=== PATIENT | female | born 1965 | race Caucasian/White ===

== ENCOUNTER 2019-08-09 13:50 | Outpatient (CLI) | payer MEDICARE, SELFPAY ==
[2019-08-09 15:22] LABS: Anion Gap 18.1 (5-19); Blood Urea Nitrogen 64 mg/dL (6-20); Calcium 9.8 mg/dL (8.5-10.5); Carbon Dioxide 30 mmol/L (22-29); Chloride 95 mmol/L (98-107); Glucose 430 mg/dL (65-115); Potassium 4.1 mmol/L (3.5-5.1); Sodium 139 mmol/L (136-145)
[2019-08-09 15:45] LABS: Creatinine Urine, Random 54 mg/dL (28-217); Microalbumin Random Urine 14 ug/dL (0-20)
[2019-08-09 15:47] LABS: Microalbum Creatinine Ratio Ur 259 mg/dL (0-20)
== END 2019-08-09 13:51 | disposition home or self-care (01) ==
LOC: LAB 14:22
PROVIDERS: Family Provider Family Medicine; PCP Family Medicine; Visit Provider Internal Medicine Nephrology
DX: N18.3 Chronic kidney disease, stage 3 (moderate) (principal)
CPT/HCPCS: 36415; 80069; 82044

== ENCOUNTER → 2019-08-17 12:14 | Outpatient (BNVA) | payer MEDICARE, SELFPAY | PROVIDERS: Family Provider Family Medicine; PCP Nurse Practitioner; Referring Provider Nurse Practitioner; Visit Provider Nurse Practitioner | DX: N18.4 Chronic kidney disease, stage 4 (severe) (principal) | CPT/HCPCS: 80069 ==

== ENCOUNTER 2019-08-22 19:02 | Emergency (ER) | payer MEDICARE, SELFPAY ==
[2019-08-22 19:02] VITALS: BP 132/77; PULSE 82; RESP 18; TEMP 36.3; O2SAT 96; BMI 43.7
--- NOTE | 2019-08-22 19:11 | XRR_ITS ---
PROCEDURE INFORMATION: Exam: XR Left Elbow Exam date and time: 08/22/2019 7:27 PM Age: 53 years old Clinical indication: Pain and injury or trauma; Fall; Initial encounter; Blunt trauma (contusions or hematomas; Elbow; Left; Injury date: 08/22/19; Additional info: Fall and left elbow pain TECHNIQUE: Imaging protocol: XR Left elbow. Views: 1 or 2 views. COMPARISON: No relevant prior studies available. FINDINGS: Bones/joints: There is a comminuted fracture of the distal humerus. There are transverse and longitudinal components. The medial humeral condylar fragment is displaced medially relative to the remainder of the humerus and the elbow joint itself. The distal humeral fracture fragment is displaced anterior relative to the proximal humerus. Soft tissues: There is superficial soft tissue swelling. XR/XR elbow LT 2V [id number] IMPRESSION: Comminuted, displaced distal humeral fracture.
[2019-08-22 19:25] VITALS: BP 132/77; PULSE 81; RESP 16; O2SAT 98
--- NOTE | 2019-08-22 19:29 | W.ED.EXTPRO ---
HPI - Extremity Problem General: Chief complaint: Extremity Injury, Upper Stated complaint: fall Time Seen by Provider: 08/22/19 19:29 History of Present Illness: HPI Narrative: Patient is a 53-year-old female comes to the ED after a fall complaining of left elbow pain. Patient is on a blood thinner and has a medical history of diabetes and COPD. She is on 3 L of oxygen at home. Patient states she was sitting in her chair at home and then she got up to walk and tripped over an object on the floor she then fell landing on her left arm. She has some minor superficial abrasion on her left knee. She says her left elbow was in extreme pain afterwards. The ambulance was called and brought her to the ED. They put her in a splint and gave her fentanyl in the ambulance. She denies any head trauma or loss of consciousness. No other bone or muscle pains after fall. She denies any numbness or tingling to her extremities. She has sensation to her hand and is able to move fingers and wrist but it does cause some pain. Associated symptoms: Deny chest pain, fever(s) or rash Review of Systems Const: Denies: fever, chills or fatigue Eyes: Denies: change in vision or eye discomfort ENMT: Denies: throat pain, painful swallowing, nasal discharge or nasal congestion Card: Denies: chest pain, palpitations, edema, swelling of feet/ankles, shortness of breath on exertion or shortness of breath when lying down Resp: Denies: shortness of breath, productive cough or non-productive cough GI: Denies: abdominal pain, nausea, vomiting, diarrhea, constipation or blood in stool : Denies: flank pain, painful urination or blood in urine Musc: Reports: extremity pain (Left elbow) and extremity swelling (Left elbow); Denies: neck pain or back pain Skin/Breast: Denies: rash or new lesion Neuro: Denies: headache, numbness in extremities or weakness in extremities [facility] ED PFSH: Medical History COPD (chronic obstructive pulmonary disease) Diastolic CHF Hyperlipidemia Hypertension Pulmonary emboli Surgical History History of endometrial ablation Hx of section Hx of vein stripping Family History Other Anesthesia complication Cancer Clotting disorder Dementia Diabetes Hypertension Social History Smoking and tobacco status: former smoker Alcohol intake: never Adopted: No Caregiver/support person: Yes Lives independently: Yes Household members: family and children Housing: House Marital status: Single Number of children: 2 Number of grandchildren: 0 Highest education level completed: Some College, No Degree service: No Current occupational status: disabled History of recent travel: No Agree to transfusion: Yes (08/05/2019) Physical Exam Const: COMMON NORMALS: oriented x3 HENMT: COMMON NORMALS: normocephalic HEAD & SCALP: normocephalic MOUTH: oral and palatal mucosa normal THROAT: posterior oropharynx normal and uvula midline Neck/C-Spine: COMMON NORMALS: supple GENERAL: Yes normal visual inspection Resp: COMMON NORMALS: normal respiratory effort, no retractions, no use of accessory muscles and clear to auscultation bilaterally AUSCULTATION: clear to auscultation bilaterally Cardio: COMMON NORMALS: regular rate, regular rhythm, S1 normal heart sound, S2 normal heart sound, no gallops, no clicks, no murmurs and peripheral pulses 2+ throughout RATE: regular rate RHYTHM: regular rhythm HEART SOUNDS: S1 normal and S2 normal PERIPHERAL PULSES: pulses 2+ throughout GI: COMMON NORMALS: normal to inspection, nondistended, normoactive bowel sounds, soft to palpation, non-tender and no masses PALPATION: Yes soft : COMMON NORMALS: Yes no CVA tenderness BLADDER/KIDNEY EXAM: Yes no CVA tenderness Back/Pelvis: COMMON NORMALS: no CVA tenderness Extremity: GENERAL: Yes normal exam except as noted LEFT UPPER EXTREMITY: Yes elbow joint Left elbow: Yes inspection (swelling), Yes palpation (tender on lateral and medial side of elbow), Yes ROM (patient had splint on that was placed by ambulance.) and Yes neurovascular exam (intact-pulse 2+) Neuro: COMMON NORMALS: oriented x3 and moves all extremities Skin: TRAUMA: abrasion (superficial abrasion on left knee) Course ED course: I contacted [facility] in [place] and I talked to him and upper extremity orthopedic surgeon (Dr. Rm) about patient. Dr. Rm suggested that we transfer the patient tonight and direct admit them to [facility]. Vital Signs: Vital signs: Vital Signs Temperature 98.7 F 08/22/19 22:49 Pulse Rate 81 08/22/19 22:49 Respiratory Rate 16 08/22/19 22:49 Blood Pressure 145/74 08/22/19 22:49 Pulse Oximetry 97 08/22/19 22:49 MDM - Extremity (Nontraumatic) Imaging Data^: Xray Ortho: Attestation: I personally reviewed and interpreted this imaging study as follows: My impression: closed Fracture of distal humeral head. Medial epicondyles has been sheared and is displaced. Pending final radiology report. Discharge Plan Discharge Patient Disposition: Xfer Other Clinical Impression: Fracture of distal end of humerus Qualifiers: Encounter type: initial encounter Fracture type: closed Fracture morphology: other fracture Fracture alignment: displaced Laterality: left Qualified Code(s): S42.492A - Other displaced fracture of lower end of left humerus, initial encounter for closed fracture Condition: Stable Referrals: Suma Shaw FNP [Primary Care Provider] - Pilar Mcleod DO [Family Provider] - Discharge Date/Time: 08/22/19 22:45 Coding Level of Care Code ED [facility] House Worker for Chg Fwd Exam Comprehensive
[2019-08-22 20:00] VITALS: RESP 16; O2SAT 98
[2019-08-22] MEDS: ondansetron 2 mg/ML SDV 2 mL 4 MG IVP (20:00)
[2019-08-22] MEDS: morphine 4 mg/mL SDV 1 mL IVP (20:00)
--- NOTE | 2019-08-22 22:40 | PC.NURSE ---
Posterior palm up splint placed on left arm per orders.
[2019-08-22 22:49] VITALS: BP 145/74; PULSE 81; RESP 16; TEMP 37.1; O2SAT 97
== END 2019-08-22 22:45 | disposition other institution (70) ==
PROVIDERS: Emergency Provider Physician Assistant; Family Provider Family Medicine; PCP Nurse Practitioner
DX: S42.462A Displaced fracture of medial condyle of left humerus, initial encounter for closed fracture (principal); I11.0 Hypertensive heart disease with heart failure; I50.30 Unspecified diastolic (congestive) heart failure; J44.9 Chronic obstructive pulmonary disease, unspecified; E78.5 Hyperlipidemia, unspecified; E11.9 Type 2 diabetes mellitus without complications; Z87.891 Personal history of nicotine dependence; Z99.81 Dependence on supplemental oxygen; W01.0XXA Fall on same level from slipping, tripping and stumbling without subsequent striking against object, initial encounter; Y92.009 Unspecified place in unspecified non-institutional (private) residence as the place of occurrence of the external cause
CPT/HCPCS: 73070; 96374; 96375; 99282; 99285; J2270; J2405

== ENCOUNTER 2019-09-09 12:22 | Outpatient (CLI) | payer MEDICARE, SELFPAY ==
[2019-09-09 13:08] LABS: Albumin Level 4.3 g/dL (3.5-5.2); Anion Gap 16.8 (5-19); Calcium 10.3 mg/dL (8.5-10.5); Carbon Dioxide 34 mmol/L (22-29); Chloride 90 mmol/L (98-107); Glomerular Filtration Rate 24.6 mL/min (90-130); Glucose 233 mg/dL (65-115); Phosphorus 4.3 mg/dL (2.5-4.5); Potassium 3.8 mmol/L (3.5-5.1); Sodium 137 mmol/L (136-145)
[2019-09-09 14:25] LABS: Blood Urea Nitrogen 85 mg/dL (6-20)
== END 2019-09-09 12:23 | disposition home or self-care (01) ==
LOC: LAB 12:35
PROVIDERS: Family Provider Family Medicine; PCP Nurse Practitioner; Visit Provider Internal Medicine Nephrology
DX: N18.4 Chronic kidney disease, stage 4 (severe) (principal); E11.9 Type 2 diabetes mellitus without complications; J44.9 Chronic obstructive pulmonary disease, unspecified
CPT/HCPCS: 36415; 80069

== ENCOUNTER → 2020-05-08 12:03 | Outpatient (BNVA) | payer MEDICARE, SELFPAY | PROVIDERS: PCP Nurse Practitioner; Visit Provider Family Medicine Adult Medicine | DX: E11.65 Type 2 diabetes mellitus with hyperglycemia (principal); N18.4 Chronic kidney disease, stage 4 (severe); E78.01 Familial hypercholesterolemia; I10 Essential (primary) hypertension; I27.82 Chronic pulmonary embolism; I27.81 Cor pulmonale (chronic); I50.32 Chronic diastolic (congestive) heart failure; E11.40 Type 2 diabetes mellitus with diabetic neuropathy, unspecified; E66.2 Morbid (severe) obesity with alveolar hypoventilation | CPT/HCPCS: 80053; 80061; 83036; 84443; 85025 ==

== ENCOUNTER → 2020-05-23 13:03 | Outpatient (BNVA) | payer MEDICARE, SELFPAY | PROVIDERS: PCP Nurse Practitioner; Referring Provider Family Medicine Adult Medicine; Visit Provider Internal Medicine | DX: E11.22 Type 2 diabetes mellitus with diabetic chronic kidney disease (principal); N18.4 Chronic kidney disease, stage 4 (severe); E11.42 Type 2 diabetes mellitus with diabetic polyneuropathy; E11.65 Type 2 diabetes mellitus with hyperglycemia; E78.01 Familial hypercholesterolemia; I10 Essential (primary) hypertension; W54.8XXA Other contact with dog, initial encounter | CPT/HCPCS: 73030; 73080; 73110; 99204 ==

== ENCOUNTER → 2020-08-22 15:25 | Outpatient (BNVA) | payer MEDICARE, SELFPAY | PROVIDERS: PCP Nurse Practitioner; Visit Provider Internal Medicine | DX: E11.22 Type 2 diabetes mellitus with diabetic chronic kidney disease (principal); N18.4 Chronic kidney disease, stage 4 (severe); E11.42 Type 2 diabetes mellitus with diabetic polyneuropathy; E11.65 Type 2 diabetes mellitus with hyperglycemia | CPT/HCPCS: 99215 ==

== ENCOUNTER → 2021-02-12 11:03 | Outpatient (BNVA) | payer MEDICARE, SELFPAY | PROVIDERS: PCP Family Medicine Adult Medicine; Visit Provider Family Medicine Adult Medicine | DX: E11.65 Type 2 diabetes mellitus with hyperglycemia (principal); I10 Essential (primary) hypertension; E78.01 Familial hypercholesterolemia; N18.4 Chronic kidney disease, stage 4 (severe); I27.82 Chronic pulmonary embolism; I27.81 Cor pulmonale (chronic); I50.32 Chronic diastolic (congestive) heart failure; Z13.6 Encounter for screening for cardiovascular disorders | CPT/HCPCS: 80053; 80061; 83036; 85025 ==

== ENCOUNTER → 2021-05-01 14:14 | Outpatient (BNVA) | payer MEDICARE, SELFPAY | PROVIDERS: PCP Family Medicine Adult Medicine; Visit Provider Internal Medicine | DX: E11.65 Type 2 diabetes mellitus with hyperglycemia (principal); E11.22 Type 2 diabetes mellitus with diabetic chronic kidney disease; N18.4 Chronic kidney disease, stage 4 (severe); E66.01 Morbid (severe) obesity due to excess calories; Z68.42 Body mass index [BMI] 45.0-49.9, adult; Z79.4 Long term (current) use of insulin; Z87.891 Personal history of nicotine dependence | CPT/HCPCS: 99214 ==

== ENCOUNTER 2021-05-15 08:40 | Outpatient (CLI) | payer MEDICARE, SELFPAY ==
[2021-05-15 10:59] LABS: Alanine Aminotransferase 15 U/L (0-33); Albumin Level 3.7 g/dL (3.5-5.2); Alkaline Phosphatase 111 IU/L (35-105); Aspartate Amino Transferase 12 U/L (0-32); Blood Urea Nitrogen 48 mg/dL (6-20); Calcium 8.9 mg/dL (8.5-10.5); Carbon Dioxide 21 mmol/L (22-29); Chloride 103 mmol/L (98-107); Chol HDL Ratio 4.97 mg/dL (0.0-4.40); Cholesterol 154 mg/dL (0-200); Cortisol Random 10.83 ug/dL (2.47-19.5); Globulin 3.8 g/dL (1.3-4.6); Glucose 119 mg/dL (65-115); HDL Cholesterol 31 mg/dL (60-100); LDL Cholesterol Calculated 95 mg/dL (50-129); LDL HDL Ratio 3.06 RATIO (0.00-3.22); Osmolality Calculated 304 mOsm/kg (285-295); Sodium 140 mmol/L (136-145); Total Bilirubin 0.2 mg/dL (0.15-1.2); Total Protein 7.5 g/dL (6.6-8.7); Triglycerides 140 mg/dL (0-150)
[2021-05-15 11:24] LABS: Free T4 Free Thyroxine 0.82 ng/dL (0.82-1.77); Thyroid Stimulating Hormone 3.04 uIU/mL (0.27-4.20)
[2021-05-15 11:27] LABS: Estmated Average Glucose 148; Hemoglobin A1C 6.8 % (4.0-6.0)
== END 2021-05-15 08:41 | disposition home or self-care (01) ==
LOC: LAB 08:51
PROVIDERS: Internal Medicine; PCP Family Medicine Adult Medicine; Visit Provider Family Medicine Adult Medicine
DX: E11.65 Type 2 diabetes mellitus with hyperglycemia (principal); E66.01 Morbid (severe) obesity due to excess calories; N18.4 Chronic kidney disease, stage 4 (severe); Z68.42 Body mass index [BMI] 45.0-49.9, adult
CPT/HCPCS: 80053; 80061; 82533; 83036; 84439; 84443

== ENCOUNTER 2021-05-16 09:29 | Outpatient (CLI) | payer MEDICARE, SELFPAY ==
[2021-05-16 09:55] LABS: Total Volume Urine 2900 ml
[2021-05-16 10:03] LABS: Urine Creatinine 43 mg/dL (28-217)
[2021-05-22 15:37] LABS: Free Cortisol Urine 9.8 mcg/24 h (4.0-50.0); Total Urine 2900 mL; Urine Creatinine 1.24 g/24 h (0.50-2.15)
== END 2021-05-16 09:30 | disposition home or self-care (01) ==
PROVIDERS: PCP Family Medicine Adult Medicine; Visit Provider Internal Medicine
DX: E11.65 Type 2 diabetes mellitus with hyperglycemia (principal); E66.01 Morbid (severe) obesity due to excess calories; N18.4 Chronic kidney disease, stage 4 (severe); Z68.42 Body mass index [BMI] 45.0-49.9, adult
CPT/HCPCS: 82530; 82570

== ENCOUNTER 2021-07-09 10:31 | Outpatient (CLI) | payer MEDICARE, SELFPAY ==
[2021-07-09 11:27] LABS: Basophils % 0.4 %; Eosinophils # 0.1 10^3/uL (0.0-0.8); Eosinophils % 1.4 %; Hematocrit 34.3 % (37.0-47.0); Lymphocytes # 0.8 10^3/uL (0.8-4.8); Lymphocytes % 9.3 %; Mean Corpuscular HGB Conc 29.2 g/dL (30.0-36.0); Mean Corpuscular Hemoglobin 27.4 pg (28.0-34.0); Mean Platelet Volume 9.7 fL (7.4-10.4); Monocytes # 0.4 10^3/uL (0.2-0.9); Monocytes % 4.4 %; Neutrophils # 7.53 10^3/uL (1.8-7.7); Neutrophils % 83.7 %; Nucleated Red Blood Cells % 0 %; Platelet Count 216 10^3/cmm (130-400); Red Blood Count 3.65 10^6/uL (4.1-5.3); Red Cell Distribution Width 14.7 % (12.1-15.1)
[2021-07-09 11:41] LABS: Add Urine Microscopic? YES; Bilirubin Urine Neg (Negative); Blood Urine Trace (Negative); Glucose Urine UA Norm (Normal); Ketones Urine Negative (Negative); Leukocyte Esterase Urine Trace (Negative); Nitrate Urine Positive (Negative); Protein Urine 2+ (Negative); Urine Appearance Hazy (CLEAR); Urine Color Yellow (Yellow); Urobilinogen Urine Norm (Negative); pH Urine 5 (5-7)
[2021-07-09 11:52] LABS: Albumin Level 3.9 g/dL (3.5-5.2); Anion Gap 17.2 (5-19); Blood Urea Nitrogen 30 mg/dL (6-20); Calcium 9.7 mg/dL (8.5-10.5); Carbon Dioxide 29 mmol/L (22-29); Chloride 98 mmol/L (98-107); Ferritin 54 ng/mL (15-150); Glucose 131 mg/dL (65-115); Iron 66 ug/dL (37-145); Percent Saturation 22.3 % (20-50); Phosphorus 3.3 mg/dL (2.5-4.5); Potassium 4.2 mmol/L (3.5-5.1); Sodium 140 mmol/L (136-145); Total Iron Binding Capacity 295 mcg/dl; Unsaturated Iron Binding 229 ug/dL (112-347)
[2021-07-09 11:53] LABS: Calcium 9.7 mg/dL (8.5-10.5)
[2021-07-09 11:54] LABS: Add Urine Culture? Yes; Bacteria Urine 3+ /hpf; RBC Urine RARE /hpf (0-2); WBC Urine 15-25 /hpf (0-5)
[2021-07-09 11:59] LABS: Parathyroid Hormone 453.8 pg/mL (15-65)
[2021-07-09 12:10] LABS: Creatinine Urine, Random 38 mg/dL (28-217)
[2021-07-09 12:17] LABS: Estmated Average Glucose 126
[2021-07-09 12:22] LABS: Microalbum Creatinine Ratio Ur 3132 mg/dL (0-20); Microalbumin Random Urine 119 ug/dL (0-20)
[2021-07-09 12:40] LABS: Hepatitis B Core AB, Total Non-Reactive (Nonreactive); Hepatitis B Surface Antigen Non-Reactive (Nonreactive); Hepatitis C Virus Antibody Non-Reactive (Nonreactive)
[2021-07-09 12:41] LABS: Hepatitis B Surface AB < 3.5 (11.5-1000)
[2021-07-09 13:16] LABS: 25 Hydroxy Vitamin D > 100 ng/mL (30-100)
== END 2021-07-09 10:32 | disposition home or self-care (01) ==
PROVIDERS: PCP Family Medicine Adult Medicine; Visit Provider Registered Nurse
DX: N18.5 Chronic kidney disease, stage 5 (principal)
CPT/HCPCS: 80069; 81001; 82044; 82306; 82310; 82728; 83036; 83540; 83550; 83970; 85025; 86704; 86706; 86803; 87340

== ENCOUNTER → 2021-11-01 14:01 | Outpatient (BNVA) | payer MEDICARE, SELFPAY | PROVIDERS: PCP Family Medicine Adult Medicine; Visit Provider Internal Medicine | DX: E11.22 Type 2 diabetes mellitus with diabetic chronic kidney disease (principal); E11.65 Type 2 diabetes mellitus with hyperglycemia; N18.4 Chronic kidney disease, stage 4 (severe); I27.82 Chronic pulmonary embolism; E66.01 Morbid (severe) obesity due to excess calories; Z68.42 Body mass index [BMI] 45.0-49.9, adult; E78.01 Familial hypercholesterolemia; Z79.4 Long term (current) use of insulin; Z87.891 Personal history of nicotine dependence | CPT/HCPCS: 99215 ==

== ENCOUNTER 2021-11-06 14:52 | Outpatient (CLI) | payer MEDICARE, SELFPAY ==
[2021-11-06 15:55] LABS: Basophils % 0.4 %; Eosinophils # 0.1 10^3/uL (0.0-0.8); Eosinophils % 1.3 %; Hematocrit 34.3 % (37.0-47.0); Hemoglobin 10.4 g/dL (11.5-15.3); Lymphocytes # 1.2 10^3/uL (0.8-4.8); Lymphocytes % 13.5 %; Mean Corpuscular HGB Conc 30.3 g/dL (30.0-36.0); Mean Corpuscular Hemoglobin 27.2 pg (28.0-34.0); Mean Corpuscular Volume 89.6 fl (81-99); Mean Platelet Volume 10.1 fL (7.4-10.4); Monocytes # 0.5 10^3/uL (0.2-0.9); Monocytes % 5.4 %; Neutrophils # 6.76 10^3/uL (1.8-7.7); Neutrophils % 78.8 %; Nucleated Red Blood Cells % 0 %; Platelet Count 220 10^3/cmm (130-400); Red Blood Count 3.83 10^6/uL (4.1-5.3); Red Cell Distribution Width 16.6 % (12.1-15.1); White Blood Count 8.6 10^3/uL (4.0-10.0)
[2021-11-06 16:54] LABS: Creatinine Urine, Random 50 mg/dL (28-217)
[2021-11-06 17:07] LABS: Microalbum Creatinine Ratio Ur 4180 mg/dL (0-20); Microalbumin Random Urine 209 ug/dL (0-20)
[2021-11-06 17:36] LABS: Albumin Level 4.2 g/dL (3.5-5.2); Blood Urea Nitrogen 55 mg/dL (6-20); Calcium 9.3 mg/dL (8.5-10.5); Carbon Dioxide 24 mmol/L (22-29); Chloride 99 mmol/L (98-107); Glomerular Filtration Rate 13.1 mL/min (90-130); Glucose 132 mg/dL (65-115); Phosphorus 4.8 mg/dL (2.5-4.5); Sodium 138 mmol/L (136-145)
[2021-11-06 17:40] LABS: Anion Gap 19.1 (5-19); Potassium 4.1 mmol/L (3.5-5.1)
[2021-11-07 08:03] LABS: Parathyroid Hormone 600.4 pg/mL (15-65)
== END 2021-11-06 14:53 | disposition home or self-care (01) ==
PROVIDERS: Internal Medicine Nephrology; PCP Family Medicine Adult Medicine; Visit Provider Registered Nurse
DX: I12.9 Hypertensive chronic kidney disease with stage 1 through stage 4 chronic kidney disease, or unspecified chronic kidney disease (principal); N18.4 Chronic kidney disease, stage 4 (severe)
CPT/HCPCS: 80069; 82044; 82310; 83970; 85025

== ENCOUNTER → 2021-11-27 11:41 | Outpatient (BNVA) | payer MEDICARE, SELFPAY | PROVIDERS: PCP Family Medicine Adult Medicine; Visit Provider Surgery | DX: N18.4 Chronic kidney disease, stage 4 (severe) (principal) | CPT/HCPCS: 99202 ==

== ENCOUNTER 2021-12-04 10:20 | Day surgery (SDC) | payer MEDICARE, SELFPAY ==
[2021-12-03 13:49] VITALS: BMI 50.0
[2021-12-04] VITALS (7 sets, daily range): BP systolic 136–184; BP diastolic 66–100; PULSE 71–92; RESP 18–20; TEMP 36.1–36.5; O2SAT 93–100
--- NOTE | 2021-12-04 | SCC_ITS ---
Procedure done: Permacath placement 14.4 seconds of fluoroscopic guidance, for a cumulative dose of 4.35 mGy, was provided to Dr. Jama by the radiology department. C-arm images of the chest were saved for the patient's permanent record. [facility]
--- NOTE | 2021-12-04 10:25 | SC_ITS ---
WS: [id number] C-ARM RADIOGRAPHS CHEST; 3 IMAGES HISTORY: Permacath placement COMPARISON: None available. Intraoperative imaging during permacath placement through the RIGHT subclavian vein. SC/C-arm FL for CVA [id number] IMPRESSION: Intraoperative imaging during permacath placement.
--- NOTE | 2021-12-04 10:25 | XRR_ITS ---
PROCEDURE INFORMATION: Exam: XR Chest Exam date and time: 12/04/2021 1:17 PM Age: 56 years old Clinical indication: Device placement; Prior surgery; Surgery date: Post-operative (0-2 days); Patient HX: Postop permacath placement TECHNIQUE: Imaging protocol: XR of the chest. Views: 1 view. COMPARISON: CR Chest 1 [place] [id number] 04/30/2019 5:02 AM FINDINGS: Tubes, catheters and devices: Right central line extends into the right atrium Lungs: Unremarkable. No consolidation. Pleural spaces: Unremarkable. No pleural effusion. No pneumothorax. Heart/Mediastinum: Unremarkable. No cardiomegaly. Bones/joints: Unremarkable. XR/XR chest 1V portable [id number] IMPRESSION: 1. No acute findings. 2. Right central line in the right atrium.
[2021-12-04] MEDS: sodium chloride 0.9% 1,000 ML 30 ML IV (11:01)
[2021-12-04 11:24] LABS: Glucose Point of Care 110 mg/dL (70-110)
--- NOTE | 2021-12-04 11:50 | W.PM.OPSUD ---
Surgery/Procedure H&P Update DATE OF PROCEDURE: December 04, 2021 DATE H&P PERFORMED: 11/27/21 CHANGES TO PREVIOUS DOCUMENTATION: NONE PREOP DIAGNOSIS: End-Stage Renal disease PRIMARY INDICATION FOR PROCEDURE: ESRD PLANNED PROCEDURE: Operation Date: 12/04/21 12:00 Proposed Procedures p Dialysis Catheter Insertion(Not Applicable) - Aaron Jama DO
--- NOTE | 2021-12-04 11:54 | ANES.PREANE2 ---
Documented by User: Helga Goodrich CRNA 12/04/21 12:03 Pre-Anesthetic Assessment Height/Weight: Height 1.68 m Weight 140.614 kg Temp Pulse Resp BP Pulse Ox 97.2 F L 71 20 H 184/96 98 12/04/21 10:40 12/04/21 10:40 12/04/21 10:40 12/04/21 10:40 12/04/21 10:40 Preop Diagnosis: End-Stage Renal disease Operation Date: 12/04/21 12:00 Proposed Procedures p Dialysis Catheter Insertion(Not Applicable) - Aaron Jama, DO Was Beta Dg taken within 24 hours: N/A Was Clonidine taken within 24 hours: N/A Last intake: Intake Last Liquid Date 12/03/21 Last Liquid Time 16:00 Last Solid Date 12/03/21 Last Solid Time 16:00 Last Intake: 16:30 Social No alcohol former smoker Exam alert and oriented x 3 Airway Submandibular: within normal limits Cervical ROM: within normal limits Dentition: chipped and other Comments: Comments: very poor dentition, pt reports none loose History/ROS No significant history except as noted Pulmonary Sleep Apnea and Shortness of Breath CV/HEM Deep Vein Thrombosis (xarelto last taken on friday) and Hypertension Chronic Renal Failure Hepatic None reported GI None reported Metabolic Diabetes Mellitus, Morbid Obesity and Thyroid Disease (secondary parathyroidism) Musc/skel None reported Neuropsych Depression Anesthetic Plan ASA status: 4 Anesthesia: Anesthesia Evaluation and MAC Risk of > 500 ml blood loss (7ml/kg in children): No Medications/Allergies Home Medications Medication Instructions Recorded Confirmed Last Taken Type pen needle, diabetic 32 gauge x #100 ea 07/07/20 11/27/21 Unknown Rx 1/4 (BD Ultra-Fine Micro Pen Needle) aspirin 81 mg tablet,delayed 81 mg PO QDAY #100 tab 02/12/21 12/03/21 12/03/21 Rx release diltiazem HCl 180 mg 180 mg PO DAILY 90 Days #90 cap 02/12/21 12/04/21 12/04/21 08:00 Rx capsule,extended release 24 hr furosemide 80 mg tablet 80 mg PO .am 90 Days #90 tab 02/12/21 12/04/21 12/04/21 08:00 Rx multivitamin 1 tab PO DAILY 05/01/21 12/04/21 12/04/21 08:00 History atorvastatin 40 mg tablet See Rx Instructions .ROUTE 07/26/21 12/04/21 12/04/21 08:00 Rx .COMPLEX #30 tab apixaban 2.5 mg tablet 5 mg PO DAILY tab 11/01/21 12/03/21 11/30/21 History insulin lispro 100 unit/mL See Rx Instructions SUBCUT TID #30 11/01/21 12/04/21 12/03/21 Rx subcutaneous pen (Humalog KwikPen ml (U-100) Insulin) calcitriol 0.25 mcg capsule 0.25 mcg PO DAILY 11/23/21 12/04/21 12/04/21 08:00 History insulin glargine 100 unit/mL (3 64 unit (0.64 mL) SUBCUT BID #45 ml 11/27/21 12/04/21 12/03/21 Rx mL) subcutaneous pen (Lantus Solostar U-100 Insulin) bupropion HCl 150 mg tablet,12 hr 150 mg PO QAM #30 tab 11/30/21 12/04/21 12/04/21 08:00 Rx sustained-release Allergies Allergy/AdvReac Type Severity Reaction Status Date / Time No Known Allergies Allergy Verified 12/04/21 10:34 Current Medications Generic Name Dose Route Start Last Admin Trade Name Freq PRN Reason Stop Dose Admin Sodium Chloride 1,000 mls @ 30 mls/hr 12/04/21 10:30 12/04/21 11:01 Sodium Chloride 0.9% IV 12/05/21 10:29 30 mls/hr .Q24H DILIA Administration PFSH Anesthesia Medical History Anxiety about health CKD (chronic kidney disease) stage 4, GFR 15-29 ml/min Comminuted fracture of humerus left COPD (chronic obstructive pulmonary disease) Cor pulmonale (chronic) Depression Diabetes type 2, controlled Diabetic neuropathy Diastolic CHF Elbow fracture, left Foot fracture, right Fall 06/08/2021 2nd-4th metatarsal neck fxs and base 1st metarsal fx Hyperlipidemia Hypertension Morbid obesity with BMI of 45.0-49.9, adult Obstructive apnea Oxygen dependent Pulmonary emboli Small airways disease Surgical History History of endometrial ablation History of surgery on arm (08/25/19) left elbow Hx of section Hx of vein stripping Family History Other Anesthesia complication Cancer Clotting disorder Dementia Diabetes Hypertension Social History Smoking and tobacco status: former smoker Quit status (tobacco): has quit using tobacco Year quit tobacco: 2019 - 1.5 PPD x 45 Years Alcohol intake: never Adopted: No Caregiver/support person: Yes Lives independently: Yes Household members: family and children Housing: House Marital status: Single Number of children: 2 Number of grandchildren: 0 Highest education level completed: Some College, No Degree service: No Current occupational status: disabled History of recent travel: No Current gender identity: Female Agree to transfusion: Yes (08/05/2019) Data Anesthesia Cardiac Studies: No Data to Display
[2021-12-04] MEDS: heparin, porcine 1,000 unit/mL INJ 10 mL 10000 UNIT IRRIGATION (12:32)
[2021-12-04] MEDS: sodium chloride 0.9% 100 mL Bag XX (12:33)
--- NOTE | 2021-12-04 13:05 | PM.OP ---
Operative Report Date of procedure: December 04, 2021 Pre-op diagnosis: Preop Diagnosis End-Stage Renal disease Post-op diagnosis: same Procedure done: Permacath placement Implants: Permacath Specimens removed/disposition: none Surgeon: Dr. Aaron Jama DO Estimated blood loss: 5 Brief History: 56-year-old female with end-stage who is in need of hemodialysis. Risks and benefits of permacath placement explained and documented. Procedure: Patient was taken to the operating room and placed supine on the operating room table. All bony prominences were padded. He was given IV sedation and monitored throughout the case by the anesthesia personnel. SCDs were placed and turned on. The arms were tucked to the side. Patient received Vancomycin preoperatively IV. The bilateral chest wall was prepped and draped in usual sterile fashion using chlorhexidine base prep. Sterile drapes were applied. We did procedure pause prior to beginning. An 18 gauge needle was placed in the right internal jugular vein under ultrasound guidance. Dark, nonpulsatile blood was aspirated. A guidewire was placed through the needle centrally toward the atrial/vena caval junction. Fluoroscopy visualized good placement. The needle was removed and the guidewire was clipped to the drape with a hemostat. Further local anesthetic was infiltrated in the soft tissues of the right chest wall and a #15 blade was used to make a vertical skin incision. A #15 blade was used to make a small skin amy around the guidewire insertion area. The permacath tubing was tunneled through the subcutaneous tissues up to the needle insertion location. Serial dilators were used to serially dilate over the guidewire . A dilator with a peel-away sheath was placed over the guidewire and placed centrally. The guidewire was removed as well as the dilator and the permacath was fed into the split sheath. The split sheath was removed. Both ports were aspirated to reveal dark blood and were flushed with saline only as the patient has a heparin allergy. final fluoroscopy visualization showed no kink in the catheter and the tip of the permacath tubing near the atrial/vena caval junction. Both skin incisions were thoroughly irrigated and suctioned dry. Meticulous hemostasis noted. The internal jugular access site was closed with 4-0 Vicryl in a subcuticular fashion. The skin overlying the permacath was closed in a similar manner. The permacath was then sutured into place using 2-0 nylon in a simple interrupted fashion. skin glue was applied as a topical dressing. This was allowed to dry. Patient was awakened from anesthesia and transferred via her cart to the recovery room in stable condition. All needle, sponge, and instrument counts were correct per the operating personnel x2 counts.
--- NOTE | 2021-12-04 14:42 | ANE.PACU2 ---
Inpatient post-anesthesia follow up: Vital signs: Temperature 97.6 F Pulse Rate 82 Respiratory Rate 18 Blood Pressure 144/80 Pulse Oximetry 97 Oxygen Delivery Me thod Nasal Cannula Oxygen Flow Rate 2 Fraction of Inspir ed Oxygen
== END 2021-12-04 14:19 | disposition home or self-care (01) ==
PROVIDERS: PCP Family Medicine Adult Medicine; Visit Provider Surgery
PROC: (CPT 36561; principal; 2021-12-04 12:00)
DX: N18.6 End stage renal disease (principal); E11.22 Type 2 diabetes mellitus with diabetic chronic kidney disease; I13.2 Hypertensive heart and chronic kidney disease with heart failure and with stage 5 chronic kidney disease, or end stage renal disease; I50.30 Unspecified diastolic (congestive) heart failure; G47.30 Sleep apnea, unspecified; Z86.718 Personal history of other venous thrombosis and embolism; E66.01 Morbid (severe) obesity due to excess calories; Z68.43 Body mass index [BMI] 50.0-59.9, adult; Z79.82 Long term (current) use of aspirin; Z79.4 Long term (current) use of insulin; J44.9 Chronic obstructive pulmonary disease, unspecified; E11.40 Type 2 diabetes mellitus with diabetic neuropathy, unspecified; E78.5 Hyperlipidemia, unspecified; Z99.81 Dependence on supplemental oxygen; Z87.891 Personal history of nicotine dependence
CPT/HCPCS: 36561; 36416; 71045; 76000; 77001; 82962; J1644; J2704; J3010; J3490; J7030

== ENCOUNTER → 2021-12-11 08:15 | Outpatient (BNVA) | payer MEDICARE, SELFPAY | PROVIDERS: PCP Family Medicine Adult Medicine; Visit Provider Surgery | DX: Z98.890 Other specified postprocedural states (principal) | CPT/HCPCS: 99213 ==

== ENCOUNTER 2021-12-19 10:27 | Outpatient (CLI) | payer MEDICARE, SELFPAY ==
[2021-12-19 11:39] LABS: Estmated Average Glucose 148; Hemoglobin A1C 6.8 % (4.0-6.0)
[2021-12-19 11:53] LABS: Anion Gap 16.4 (5-19); Blood Urea Nitrogen 52 mg/dL (6-20); Calcium 9.3 mg/dL (8.5-10.5); Carbon Dioxide 26 mmol/L (22-29); Chloride 98 mmol/L (98-107); Glomerular Filtration Rate 12.3 mL/min (90-130); Glucose 83 mg/dL (65-115); Osmolality Calculated 295 mOsm/kg (285-295); Potassium 4.4 mmol/L (3.5-5.1); Sodium 136 mmol/L (136-145)
[2021-12-19 12:02] LABS: Alanine Aminotransferase 11 U/L (0-33); Albumin Level 4.3 g/dL (3.5-5.2); Alkaline Phosphatase 83 IU/L (35-105); Anion Gap 15.4 (5-19); Aspartate Amino Transferase 15 U/L (0-32); Blood Urea Nitrogen 52 mg/dL (6-20); Calcium 9.3 mg/dL (8.5-10.5); Carbon Dioxide 26 mmol/L (22-29); Chloride 98 mmol/L (98-107); Chol HDL Ratio 3.97 mg/dL (0.0-4.40); Cholesterol 147 mg/dL (0-200); Globulin 3.8 g/dL (1.3-4.6); Glomerular Filtration Rate 12.7 mL/min (90-130); Glucose 80 mg/dL (65-115); HDL Cholesterol 37 mg/dL (60-100); LDL Cholesterol Calculated 75 mg/dL (50-129); LDL HDL Ratio 2.03 RATIO (0.00-3.22); Osmolality Calculated 293 mOsm/kg (285-295); Potassium 4.4 mmol/L (3.5-5.1); Sodium 135 mmol/L (136-145); Total Bilirubin 0.2 mg/dL (0.15-1.2); Total Protein 8.1 g/dL (6.6-8.7); Triglycerides 174 mg/dL (0-150)
== END 2021-12-19 10:28 | disposition home or self-care (01) ==
PROVIDERS: PCP Family Medicine Adult Medicine; Referring Provider Registered Nurse; Visit Provider Internal Medicine
DX: N18.5 Chronic kidney disease, stage 5 (principal); E11.9 Type 2 diabetes mellitus without complications; E66.01 Morbid (severe) obesity due to excess calories; Z68.42 Body mass index [BMI] 45.0-49.9, adult
CPT/HCPCS: 80048; 80053; 80061; 83036

== ENCOUNTER → 2022-01-07 08:05 | Outpatient (BNVA) | payer MEDICARE, SELFPAY | PROVIDERS: PCP Family Medicine Adult Medicine; Visit Provider Surgery | DX: N18.4 Chronic kidney disease, stage 4 (severe) (principal) | CPT/HCPCS: 99213 ==

== ENCOUNTER 2022-01-24 13:24 | Outpatient (CLI) | payer MEDICARE, SELFPAY ==
[2022-01-24 14:30] LABS: Basophils % 0.4 %; Eosinophils # 0.1 10^3/uL (0.0-0.8); Eosinophils % 1.2 %; Hematocrit 31.5 % (37.0-47.0); Hemoglobin 10.3 g/dL (11.5-15.3); Lymphocytes # 0.9 10^3/uL (0.8-4.8); Lymphocytes % 10.3 %; Mean Corpuscular HGB Conc 32.7 g/dL (30.0-36.0); Mean Corpuscular Volume 88.7 fl (81-99); Mean Platelet Volume 10.1 fL (7.4-10.4); Monocytes # 0.4 10^3/uL (0.2-0.9); Monocytes % 4.8 %; Neutrophils % 82.8 %; Nucleated Red Blood Cells % 0 %; Platelet Count 252 10^3/cmm (130-400); Red Blood Count 3.55 10^6/uL (4.1-5.3); Red Cell Distribution Width 14.6 % (12.1-15.1); White Blood Count 8.6 10^3/uL (4.0-10.0)
[2022-01-24 14:59] LABS: Creatinine Urine, Random 49 mg/dL (28-217)
[2022-01-24 15:11] LABS: Microalbum Creatinine Ratio Ur 3510 mg/dL (0-20); Microalbumin Random Urine 172 ug/dL (0-20)
[2022-01-24 15:16] LABS: 25 Hydroxy Vitamin D 34 ng/mL (30-100); Albumin Level 4.2 g/dL (3.5-5.2); Anion Gap 16.7 (5-19); Blood Urea Nitrogen 47 mg/dL (6-20); Calcium 9.4 mg/dL (8.5-10.5); Carbon Dioxide 30 mmol/L (22-29); Chloride 97 mmol/L (98-107); Glomerular Filtration Rate 12.3 mL/min (90-130); Glucose 155 mg/dL (65-115); Phosphorus 4.7 mg/dL (2.5-4.5); Potassium 4.7 mmol/L (3.5-5.1); Sodium 139 mmol/L (136-145)
[2022-01-24 15:31] LABS: Hepatitis B Core IgM Non-Reactive (Nonreactive); Hepatitis B Surface AB 3.5 (11.5-1000); Hepatitis B Surface Antigen Non-Reactive (Nonreactive); Hepatitis C Virus Antibody Non-Reactive (Nonreactive)
[2022-01-24 15:41] LABS: Calcium 9.3 mg/dL (8.5-10.5)
[2022-01-24 16:03] LABS: Parathyroid Hormone 574.5 pg/mL (15-65)
== END 2022-01-24 13:25 | disposition home or self-care (01) ==
PROVIDERS: PCP Family Medicine Adult Medicine; Visit Provider Registered Nurse
DX: N18.4 Chronic kidney disease, stage 4 (severe) (principal)
CPT/HCPCS: 36415; 80069; 82044; 82306; 82310; 83970; 85025; 86705; 86706; 86803; 87340

== ENCOUNTER → 2022-01-29 14:00 | Outpatient (BNVA) | payer MEDICARE, SELFPAY | PROVIDERS: PCP Family Medicine Adult Medicine; Visit Provider Internal Medicine | DX: E11.65 Type 2 diabetes mellitus with hyperglycemia (principal); E11.22 Type 2 diabetes mellitus with diabetic chronic kidney disease; N18.4 Chronic kidney disease, stage 4 (severe); E78.5 Hyperlipidemia, unspecified; E66.01 Morbid (severe) obesity due to excess calories; E78.01 Familial hypercholesterolemia; Z68.42 Body mass index [BMI] 45.0-49.9, adult; Z87.891 Personal history of nicotine dependence; Z79.4 Long term (current) use of insulin | CPT/HCPCS: 99215 ==

== ENCOUNTER → 2022-01-31 12:21 | Day surgery (SDC) | payer MEDICARE, SELFPAY ==
--- NOTE | 2022-01-31 12:30 | PC.NURSE ---
Pt to GI lab for Cathflo to right chest hemodialysis port. Gauze dressing with tape noted to right chest. Pt states the drAdam office placed the gauze dressing yesterday. States site has been open to air and she has been showering since November when hemodialysis cath placed by Dr. Jama. Large hair-filled crust noted to be wrapped around catheter at insertion site. Crust removed. No sutures noted securing device in place. Site cleansed with chlorhexadine, stat-lock device placed, and occlusive dressing placed over site. Pt informed that site should have a sterile dressing placed every 7 days. Pt states catheter has not been flushed or used since placement in November. Pt states she has been awaiting to hear from Dr. Davila's office regarding when dialysis is to start. Cathflo successful. Able to withdraw blood easily from blue port. Both ports flushed easily with NS and locked with heparin lock flush. Pt to follow up with Dr. Davila's office.
[2022-01-31 12:31] VITALS: BP 172/64; PULSE 90; RESP 18; TEMP 35.9; O2SAT 94
[2022-01-31] MEDS: alteplase 1 mg/mL SDV 2 mL 2 MG INTRACATH (12:36)
== END ==
LOC: GILAB 12:22
PROVIDERS: PCP Family Medicine Adult Medicine; Visit Provider Surgery
DX: N18.4 Chronic kidney disease, stage 4 (severe) (principal)
CPT/HCPCS: 36593; J1642; J2997

== ENCOUNTER → 2022-08-06 13:08 | Outpatient (BNVA) | payer MEDICARE, SELFPAY | PROVIDERS: PCP Family Medicine Adult Medicine; Visit Provider Internal Medicine | DX: E11.22 Type 2 diabetes mellitus with diabetic chronic kidney disease (principal); E11.42 Type 2 diabetes mellitus with diabetic polyneuropathy; E11.65 Type 2 diabetes mellitus with hyperglycemia; N18.4 Chronic kidney disease, stage 4 (severe); Z68.42 Body mass index [BMI] 45.0-49.9, adult; E78.01 Familial hypercholesterolemia; Z79.4 Long term (current) use of insulin | CPT/HCPCS: 99214 ==

== ENCOUNTER 2022-11-11 09:54 | Outpatient (CLI) | payer MEDICARE, SELFPAY | END 2022-11-11 09:55 | disposition home or self-care (01) | PROVIDERS: PCP Family Medicine Adult Medicine; Visit Provider Internal Medicine | DX: E78.01 Familial hypercholesterolemia; Z79.4 Long term (current) use of insulin; E11.65 Type 2 diabetes mellitus with hyperglycemia; E11.40 Type 2 diabetes mellitus with diabetic neuropathy, unspecified; I50.32 Chronic diastolic (congestive) heart failure; E66.01 Morbid (severe) obesity due to excess calories; Z68.42 Body mass index [BMI] 45.0-49.9, adult | CPT/HCPCS: 99214 ==